=== PATIENT | female | born 1955 | race Asian ===

== ENCOUNTER 2024-12-04 14:07 | Observation (INO) | payer OTHER ==
[~2024-12-04] VITALS: Ht 154.9 cm; Wt 58.5 kg
[2024-12-04 15:14] LABS: BASOPHILS % (AUTO) 0.9 % (0.0-2.0); EOSINOPHILS % (AUTO) 6.8 % (1.0-6.0); HEMATOCRIT 37.3 % (36-46); HEMOGLOBIN 12.3 g/dL (12.0-16.0); LYMPHOCYTES # (AUTO) 1.9 K/uL (1.0-4.8); LYMPHOCYTES % (AUTO) 28.3 % (22.0-44.0); MEAN CORPUSCULAR HEMOGLOBIN 29.2 pg (26.0-34.0); MEAN CORPUSCULAR HGB CONC 32.8 G/dL (31.0-37.0); MEAN CORPUSCULAR VOLUME 89 fL (80-100); MONOCYTES # (AUTO) 0.4 K/uL (0.1-1.0); MONOCYTES % (AUTO) 6.4 % (2.0-9.0); NEUTROPHILS # (AUTO) 3.8 K/uL (1.8-7.7); NEUTROPHILS % (AUTO) 57.6 % (40.0-70.0); PLATELET COUNT (AUTO) 248 K/uL (150-450); RED BLOOD CELL COUNT(AUTO) 4.19 MIL/uL (4.00-5.20); RED CELL DISTRIBUTION WIDTH 13.3 % (11.5-14.5); WHITE BLOOD COUNT (AUTO) 6.6 K/uL (4.5-11.0)
[2024-12-04 15:21] LABS: ANION GAP 12 mmol/L (8-16); CALCIUM, TOTAL 9.1 mg/dL (8.8-10.5); CARBON DIOXIDE 24 mmol/L (22-29); CHLORIDE 104 mmol/L (98-107); CREATININE 1.78 mg/dL (0.60-1.30); GLOMERULAR FILTR. RATE CALC 28 mL/min (>60); GLUCOSE,RANDOM 230 mg/dL (70-110); POTASSIUM 5.3 mmol/L (3.5-5.1); SODIUM SERUM 140 mmol/L (136-145); UREA NITROGEN, BLOOD 15 mg/dL (7-18)
[2024-12-04 15:29] LABS: TROPONIN I-HIGH SENSITIVITY 4 ng/L (<51)
[2024-12-04] MEDS: ASPIRIN 325 MG TABLET PO ONE (16:12)
[2024-12-04] MEDS: NITROGLYCERIN 0.4 MG SUBLINGUAL TABLET #25 SL ONE (16:12)
[2024-12-04] MEDS ORDERED: DEXTROSE 50%-WATER 25 GM/50 ML SYRINGE IVP PRN (17:00)
[2024-12-04] MEDS ORDERED: INSULIN LISPRO 100 UNITS/ML SQ PRN (17:00)
[2024-12-04] MEDS ORDERED: MAGNESIUM HYDROXIDE SUSPENSION 30 ML UDCUP PO PRN (17:00)
[2024-12-04] MEDS ORDERED: ONDANSETRON HCL 4 MG/2 ML VIAL IVP PRN (17:00)
[2024-12-04] MEDS ORDERED: ACETAMINOPHEN 325 MG TABLET PO PRN (17:00)
[2024-12-04] MEDS: NITROGLYCERIN 2% (1 GM=INCH) OINTMENT PACKET TP ONE (17:19)
[2024-12-04] MEDS: SODIUM ZIRCONIUM CYCLOSILICATE 5 GM POWDER PACKET PO ONE (17:19)
[2024-12-04] MEDS: LORazepam 2 MG/ML VIAL IVP ONE (17:31)
[2024-12-04 19:01] LABS: APPEARANCE,URINE HAZY (CLEAR); BILIRUBIN,URINE NEGATIVE (NEGATIVE); COLOR,URINE COLORLESS (YELLOW); GLUCOSE, URINE (UA) >=1000 mg/dL (NEGATIVE); KETONES,URINE NEGATIVE (NEGATIVE); LEUKOCYTE ESTERASE ,URINE MODERATE (NEGATIVE); NITRATE,URINE NEGATIVE (NEGATIVE); OCCULT BLOOD,URINE NEGATIVE (NEGATIVE); PROTEIN,URINE 30-70 mg/dL (NEGATIVE); SPECIFIC GRAVITIY, URINE 1.006 (1.003-1.030); UROBILINOGEN,URINE <=1.0 mg/dL (<=1.0)
[2024-12-04 19:13] LABS: RBC,URINE 0-2 /HPF (0-2)
[2024-12-04 19:14] LABS: BACTERIA,URINE Many /HPF (None Seen); SQUAMOUS EPITHELIAL CELL,UR Rare /LPF (None Seen)
[2024-12-04] MEDS: FAMOTIDINE 20 MG TABLET PO SCH (20:23)
[2024-12-04] MEDS: ATORVASTATIN CALCIUM 20 MG TABLET PO SCH (20:23)
[2024-12-04] MEDS: METOPROLOL TARTRATE 25 MG TABLET PO SCH (20:23)
[2024-12-04 21:36] LABS: TROPONIN I-HIGH SENSITIVITY 7 ng/L (<51)
[2024-12-05] VITALS: BP 126/83; PULSE 80; RESP 12; TEMP 97.7; O2SAT 98
[2024-12-05] MEDS: HEPARIN SODIUM,PORCINE 5,000 UNITS/ML VIAL SQ SCH (00:46)
[2024-12-05 04:00] VITALS: BP 138/81; PULSE 77; RESP 20; TEMP 98.1; O2SAT 99
[2024-12-05 06:37] LABS: BASOPHILS % (AUTO) 0.5 % (0.0-2.0); EOSINOPHILS % (AUTO) 8.5 % (1.0-6.0); HEMATOCRIT 34.8 % (36-46); HEMOGLOBIN 11.7 g/dL (12.0-16.0); LYMPHOCYTES # (AUTO) 2.3 K/uL (1.0-4.8); LYMPHOCYTES % (AUTO) 31.2 % (22.0-44.0); MEAN CORPUSCULAR HEMOGLOBIN 30.1 pg (26.0-34.0); MEAN CORPUSCULAR HGB CONC 33.7 G/dL (31.0-37.0); MEAN CORPUSCULAR VOLUME 90 fL (80-100); MONOCYTES # (AUTO) 0.5 K/uL (0.1-1.0); MONOCYTES % (AUTO) 6.6 % (2.0-9.0); NEUTROPHILS # (AUTO) 3.9 K/uL (1.8-7.7); NEUTROPHILS % (AUTO) 53.2 % (40.0-70.0); PLATELET COUNT (AUTO) 237 K/uL (150-450); RED BLOOD CELL COUNT(AUTO) 3.89 MIL/uL (4.00-5.20); RED CELL DISTRIBUTION WIDTH 13.1 % (11.5-14.5); WHITE BLOOD COUNT (AUTO) 7.2 K/uL (4.5-11.0)
[2024-12-05 06:42] LABS: CALCIUM, TOTAL 8.7 mg/dL (8.8-10.5); CREATININE 1.7 mg/dL (0.60-1.30); POTASSIUM 5.2 mmol/L (3.5-5.1)
[2024-12-05 07:40] VITALS: BP 131/72; PULSE 82; RESP 18; TEMP 97.9; O2SAT 98
[2024-12-05] MEDS: ASPIRIN 81 MG CHEWABLE TABLET PO SCH (07:58)
[2024-12-05] MEDS ORDERED: BRIM5DRO9 OU (11:38)
[2024-12-05] MEDS ORDERED: ASPI-1444 PO (11:38)
[2024-12-05] MEDS ORDERED: INSNPH SQ (11:38)
[2024-12-05] MEDS ORDERED: CALC0.2521 PO (11:38)
[2024-12-05] MEDS ORDERED: LOSA100T59 PO (11:38)
[2024-12-05] MEDS ORDERED: METF-446 PO (11:38)
[2024-12-05] MEDS ORDERED: FLUT16H NASAL (11:38)
[2024-12-05] MEDS ORDERED: EMPA25TA3 PO (11:38)
[2024-12-05] MEDS ORDERED: HYDR12.56 PO (11:38)
[2024-12-05] MEDS ORDERED: CHOL500045 PO (11:38)
[2024-12-05] MEDS ORDERED: ATOR-2 PO (11:38)
[2024-12-05] MEDS ORDERED: BIMA2.5D4 OU (11:38)
[2024-12-05 11:39] VITALS: BP 133/75; PULSE 80; RESP 18; TEMP 98; O2SAT 98
[2024-12-05] MEDS ORDERED: AMLO-258 PO (11:41)
[2024-12-05] MEDS ORDERED: SITA50 PO (11:43)
[2024-12-05 11:46] LABS: GLUCOMETER DEV NAME(LOC) 5S.2D; GLUCOSE,POINT OF CARE 115 MG/DL (70-110)
[2024-12-05 11:46] LABS: GLUCOMETER DEV NAME(LOC) 5S.2D; GLUCOSE,POINT OF CARE 133 MG/DL (70-110)
[2024-12-05] MEDS: CefTRIAXone 1 GM/DEXTROSE 50 ML IV SCH (12:00)
[2024-12-05] MEDS: SODIUM CHLORIDE 0.9% 1,000 ML IV ONE (12:59)
== END 2024-12-05 13:25 | disposition home or self-care (01) ==
LOC: EMS 16:12 → INTOOBSV 16:51 → EDH 16:51 → 5S 20:58 → UNDODISIN 12-05 13:25
PROVIDERS: ADMIT Internal Medicine; ATTEND Internal Medicine
DX: R07.89 Other chest pain (principal); I12.9 Hypertensive chronic kidney disease with stage 1 through stage 4 chronic kidney disease, or unspecified chronic kidney disease; E11.22 Type 2 diabetes mellitus with diabetic chronic kidney disease; N18.9 Chronic kidney disease, unspecified; E11.65 Type 2 diabetes mellitus with hyperglycemia; E87.5 Hyperkalemia; E78.00 Pure hypercholesterolemia, unspecified; Z79.899 Other long term (current) drug therapy; Z86.2 Personal history of diseases of the blood and blood-forming organs and certain disorders involving the immune mechanism
CPT/HCPCS: 99219 ×2; 80048 ×2; 81001; 83880; 84484; 85025 ×2; 87086; 36415 ×2; 93306; 71045; 70450; 99285; 93005; 96374; 96372; 82962; J2060; J0696; J1644; J7030

== ENCOUNTER 2025-03-19 10:59 | Emergency (ER) | payer OTHER ==
[~2025-03-19] VITALS: Ht 154.9 cm; Wt 59.0 kg
[~2025-03-19 10:59] MED LIST: AMLO-258 PO; ASPI-1444 PO; ATOR-2 PO; BIMA2.5D4 OU; BRIM5DRO9 OU; CALC0.2521 PO; CHOL500045 PO; EMPA25TA3 PO; FLUT16H NASAL; INSNPH SQ
[2025-03-19 11:29] VITALS: BP 119/58; PULSE 84; RESP 18; TEMP 97.9; O2SAT 100
[2025-03-19] MEDS ORDERED: AMOX-457 PO (13:38)
== END 2025-03-19 14:27 | disposition home or self-care (01) ==
LOC: EMS 10:59
DX: S61.451A Open bite of right hand, initial encounter (principal); E11.9 Type 2 diabetes mellitus without complications; E78.00 Pure hypercholesterolemia, unspecified; I10 Essential (primary) hypertension; Z79.899 Other long term (current) drug therapy; Z79.4 Long term (current) use of insulin; Z79.82 Long term (current) use of aspirin; W55.01XA Bitten by cat, initial encounter; Y93.89 Activity, other specified; Y92.89 Other specified places as the place of occurrence of the external cause; Y99.8 Other external cause status
CPT/HCPCS: 99283; Z7502